=== PATIENT | male | born 1980 | race Caucasian/White ===

== ENCOUNTER 2025-03-10 01:41 | Emergency (ER) | payer SELFPAY ==
[2025-03-10] VITALS (10 sets, daily range): BP systolic 149–168; BP diastolic 103–128; BMI 28.3
[2025-03-10 02:47] LABS: Hematocrit 44.3 % (39.0-52.0); Hemoglobin 15.3 g/dL (13.0-18.0); Mean Corp Hgb Conc. 34.5 g/dL (33.0-37.0); Mean Corpuscular Volume 86.2 fL (80.0-94.0); Nucleated Red Blood Cells % 0 % (-); Platelet Count 177 10^3/uL (130-400); Red Cell Dist. Width 13.4 % (11.5-14.5)
[2025-03-10 02:59] LABS: APTT 26.2 Sec (23.4-35.0); INR 1.05; PT 14.0 Sec (11.4-14.6)
[2025-03-10 03:18] LABS: Troponin I < 0.012 ng/ml
[2025-03-10 03:24] LABS: Blood Urea Nitrogen 16 mg/dl (9-20); Calcium 8.6 mg/dl (8.4-10.2); Carbon Dioxide 21 mmol/L (22-30); Chloride 110 mmol/L (98-107); Estimated Creatinine Clearance > 125 ml/min; Glucose 106 mg/dl (70-99); Sodium 136 mmol/L (135-145); eGFR > 60.00
[2025-03-10 04:44] LABS: Potassium, Plasma 4.0 mMOL/L
--- NOTE | 2025-03-10 06:33 | ED.GENMED ---
History of Present Illness
General
Chief Complaint: Blood Pressure Problem
Source: patient
Exam Limitations: none
Time Seen by Provider: 03/10/25 06:12
History of Present Illness
History of Present Illness:
44 year old male presents in custody after being picked up on a warrant with complaints of elevated blood pressure, heart rate disorientation and dizziness. He has a history of aortic dissection in 25. He is on blood pressure medicine for this
however he is not sure the name of this. He states the last time he had this was 2 evenings ago. No vomiting. He noted some blurry vision associated with this as well with there is no neck pain. No fevers. No other complaints
Phy Exam
Physical Exam
Physical Exam:
General: Well-appearing male no acute respiratory distress
HEENT: Normocephalic atraumatic pupils equal round reactive to light
Heart: Regular rate and rhythm lungs: Clear no wheeze
Abdomen is soft nontender
Neurologic exam: Alert and oriented no facial asymmetry conversing appropriately pupils equal round reactive to light no unilateral deficit no slurred speech
Extremities: No cyanosis or edema
Course
Orders/Labs/Results
Orders:
Orders
03/10/25 02:01
Electrocardiogram (*1) Stat
Reason for Study: Other
Other Reason for Exam: chest pain
EKG- Treatment ONCE
03/10/25 02:37
Basic Metabolic Panel Urgent
Comment: NO K
Complete Blood Count/With Diff Urgent
Troponin I Urgent
03/10/25 02:38
PTT Urgent
Prothrombin Time Urgent
03/10/25 04:12
Potassium, Plasma Urgent
03/10/25 06:24
CT Head W/o Iv Contrast Urgent
Comment:
Reason For Exam: headache, dizzy, elevated BP
03/10/25 06:28
Metoprolol [Lopressor] 5 mg IV NOW STA
Abnormal Lab Results
03/10/25
02:37
Chloride 110 H mmol/L
(98-107)
Carbon Dioxide 21 L mmol/L
(22-30)
Glucose 106 H mg/dl
(70-99)
03/10/25 02:37
03/10/25 02:37
Vital Signs
Initial and Last Documented VS:
Initial Vital Signs
Temp Pulse Resp BP Pulse Ox
97.8 F 81 20 168/128 98
03/10/25 01:44 03/10/25 01:44 03/10/25 01:44 03/10/25 01:44 03/10/25 01:44
Last Documented Vital Signs
Temp Pulse Resp BP Pulse Ox
97.8 F 69 15 153/103 97
03/10/25 01:44 03/10/25 08:00 03/10/25 06:53 03/10/25 08:00 03/10/25 06:35
MDM/Problems Addressed
Differential Diagnosis Includes:
Patient with disorientation blurry vision dizziness with noted elevated blood pressure readings. History of high blood pressure. History of aortic dissection. No chest pain currently. Likely related to his high blood pressure. Will obtain CT
scan of head. Lopressor ordered for pressure. Labs reviewed that were ordered through triage which are without significant finding. EKG shows sinus rhythm without ischemic changes.
*Pulse Oximetry
SaO2: 97
Oxygen Mode of Delivery: Room air
Patient hypoxic: no
*Critical Care Note
Total Time (30-74mins, 75-104mins- exclusive of procedures): Not Applicable
Update Note
Update Note:
CT head negative. Blood pressure slightly improved after IV Lopressor. Patient has not taken his regular medications in 2 days I advise he continue his blood pressure medicine at home. Otherwise he is stable. He is ready for discharge in custody
of the Operations Support Manager
ED Attending Note
-
Portions of this chart may have been created with voice recognition software.� Occasional wrong word or��sound alike� substitutions may have occurred due to the inherent limitations of voice recognition software.
Discharge Plan
Departure
Patient Disposition: Home (Routine Discharge)
Date of Disposition: 03/10/25
Time of Disposition: 08:44
Patient with high blood pressure during this ER visit?: No
Discharge Problem:
Hypertension
Instructions: High Blood Pressure (DC)
Referrals:
NONE,* [Family Provider, Internal Medicine]
Activity Restrictions/Additional Instructions:
Continue current blood pressure medication regimen. Return if worse otherwise follow-up with your doctor
Interventions
Interventions:
*Risk Screen - Suicide Last Done: 03/10/25 01:44
*General Assessment Last Done: 03/10/25 01:44
*Neglect/Abuse Screening Last Done: 03/10/25 01:44
*ED- Fall Risk Assessment Last Done: 03/10/25 01:44
*ED COVID-19 Vaccine History Last Done: 03/10/25 01:44
ED- Pulmonary Assessment Last Done: 03/10/25 07:29
ED- Neurological Assessment Last Done: 03/10/25 07:29
ED- Cardiac Assessment Last Done: 03/10/25 07:29
Discharge Date and Time
Print Language: JORDANIAN
[2025-03-10] MEDS: LOPRESSOR 5 MG IV (06:54)
== END 2025-03-10 09:02 ==
LOC: EMR 01:41
PROVIDERS: Emergency Medicine; EMERGENCY PHYSICIAN Student in an Organized Health Care Education/Training Program
DX: I10 Essential (primary) hypertension (principal); T46.5X6A Underdosing of other antihypertensive drugs, initial encounter; Z91.128 Patient's intentional underdosing of medication regimen for other reason
CPT/HCPCS: 99284; 96374; 70450; 80048; 84132; 84484; 85025; 85610; 85730; 93005